=== PATIENT | female | born 1980 | race Caucasian/White ===

== ENCOUNTER 2019-08-22 02:13 | Emergency (ER) | payer OTHER, SELFPAY ==
--- NOTE | ~2019-08-22 | CT_ITS ---
EXAMINATION: CTA chest PE protocol DATE: 08/22/2019 04:38 INDICATION: Dyspnea on exertion. Elevated d-dimer. TECHNIQUE: Computed tomography (CT) pulmonary angiogram of the chest was performed with 100 mL Omnipa que-350 intravenous contrast. Additional 3D reconstructions utilizing coronal maximum intensity proje ction (MIP) were performed. Automated exposure control and iterative reconstruction technique were em ployed. The dose-length product was 213.80 mGy-cm. COMPARISON: None FINDINGS: Good contrast opacification of the pulmonary arteries. There is mild streak artifact from dense contr ast in the superior vena cava and right atrium. Minimal scattered motion artifact which does not sign ificantly limit evaluation. No pulmonary embolism. Lungs are clear with no pneumonia or other pulmona ry infiltrates, pulmonary edema, pleural effusion or pneumothorax. Diffuse mild bronchial wall thicke carina which could be seen with bronchitis. Heart size is normal. No pericardial effusion. Thoracic aor ta is normal in caliber with no dissection. Relatively symmetric shoddy bilateral axillary lymph node s. No pathologically enlarged thoracic lymphadenopathy. Visual is upper abdomen is unremarkable. The lower thoracic kyphosis with anterior height loss of the fused T10 and T11 vertebral bodies which cou ld be developmental or sequela of old trauma. Schmorl's nodes at T12 and at L1, lateral with chronic appearing mild anterior wedging. IMPRESSION: 1. No pulmonary embolism. 2. Mild bronchial wall thickening which could be seen with bronchitis. No pneumonia. Reviewed, dictated and finalized at location A. IMPRESSION: 1. No pulmonary embolism. 2. Mild bronchial wall thickening which could be seen with bronchitis. No pneum onia.
--- NOTE | ~2019-08-22 | XR_ITS ---
EXAMINATION: XR chest 2V 08/22/2019 03:47 INDICATION: Dyspnea with exertion PROCEDURE: 2 view chest COMPARISON: 03/31/2017 FINDINGS: The lungs are clear. The cardiomediastinal silhouette is within normal limits. There are no pleural effusions. There is no pneumothorax suspected. There is chronic wedge compression fractu re of the lower thoracic spine with accentuated kyphosis. The lungs are hyperinflated which is consis tent with, but not diagnostic of chronic obstructive pulmonary disease. IMPRESSION: 1: NO ACUTE CARDIOPULMONARY DISEASE. Reviewed, dictated and finalized at location A.
[2019-08-22 02:15] VITALS: BP 157/91; PULSE 92; RESP 16; TEMP 36.3; O2SAT 100
--- NOTE | 2019-08-22 02:25 | ECG_ITS ---
Measurements Intervals [place] Rate: 75 P: 52 [place]: 149 QRS: 43 QRSD: 84 T: 29 QT: 374 QTc: 420 Interpretive Statements SINUS RHYTHM BASELINE WANDER- V3 NORMAL ECG Electronically Signed On 08-22-2019 8:11:33 CDT by Buddy Reyes D.O.
--- NOTE | 2019-08-22 02:27 | ED.GENADULT ---
HPI - General Adult General Chief complaint: Dizziness Stated complaint: Low Hemoglobin Source: patient Mode of arrival: ambulatory Limitations: no limitations History of Present Illness HPI narrative: 39 y.o. female came to the e.d. at 2:40 AM with c/o of feeling progressively more exhausted starting several months ago. Over the last few days there are times when she feels so weak she might pass out; walking brings on a feeling of not getting enough oxygen. She states she injects methamphetamine when she gets to feeling this way, and has for 25 years. She has chronic anemia. She states she has a PCP in [facility] she has not ever seen. This AM she noticed tenderness and swelling in the left antecubital area, she last injected at that site 2 days ago. Review of records from [facility]: 11/2016 Acute on chronic LBP. Hgb = 7.6, iron of 3. Treated with IV iron; no transfusion. 04/2016 echocardiogram to evaluate heart murmur: normal e.f., grade 3 restrictive diastolic dysfunction. 04/2016 [facility] eval of anemia inconclusive. 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 Hep C carrier. Related Data Allergies Allergy/AdvReac Type Severity Reaction Status Date / Time No Known Allergies Allergy Verified 05/08/19 10:45 Review of Systems Constitutional: Constitutional: Denies anorexia, Denies chills and Denies fever(s) ENT: Reports tinnitus (this AM, comes and goes, chronic. ) Cardiovascular: Cardiovascular: Denies chest pain and Denies edema Respiratory: Respiratory: Denies cough Comments: no shortness of breath at rest. Gastrointestinal: Gastrointestinal: Denies GI cramping, Denies diarrhea and Denies nausea Genitourinary: Genitourinary: Denies hematuria and Denies dysuria Integumentary/Breasts: Skin/Breast: Reports system reviewed and no additional complaints, except as docu Neurologic: Denies vertigo Comments: Feels like when she's walking she falls to one side. Psychiatric: Psychiatric: Denies anxiety, Denies depression and Denies hopelessness [facility] Past Medical History Medical History (Updated 08/22/19 @ 05:58 by Jay Mccord MD) Blood pressure elevated without history of HTN Methamphetamine abuse Osteomyelitis Surgical History Surgical History (Updated 08/22/19 @ 05:29 by Jay Mccord MD) H/O tubal ligation Social History Social History Gender identity (if verbalized by the patient): Female Exam Const: General: cooperative, no acute distress and alert; No anxious, ill appearing or intoxicated appearing Nutritional Appearance: average body habitus and well nourished Orientation/consciousness: patient oriented x3 Limitations: no limitations HENMT: Ears: TM's normal bilaterally Mouth: Yes Normal oral and palatal mucosa present and Yes moist mucous membranes Throat: posterior oropharynx normal Eyes: General: appearance normal, both eyes and all related structures Pupils: Equal, round and reactive pupils present EOM: EOMs intact bilaterally and No Nystagmus present Neck: Neck: no lymphadenopathy noted Chest: Chest palpation & inspection: normal inspection of the chest Resp: Effort & Inspection: normal respiratory effort and able to speak in complete sentences Auscultation: clear to auscultation bilaterally Cardio: Palpation: normal PMI Rate: regular rate Rhythm: regular rhythm Heart sounds: S1 normal heart sound present, S2 normal heart sound present and Murmur heart sound present (2/6 ) GI: Inspection: normal to inspection GI Palp: No abdominal tenderness Back/Spine/Pelvis: Back: no CVA tenderness Thoracic/Lumbar Spine: thoracic and lumbar spine normal to inspection Skin: General skin exam: normal color and no rashes or lesions noted (many ~ 5 - 10 mm hypopigmented macules on upper chest. ) Lesions: other (left antecubital track mcguire, indurated 6 cm tenderness, ) Rashes: no rashes (dark red along the L antec
[2019-08-22 02:53] LABS: Basophils Absolute Auto 0.06 K/mm3 (0.00-0.10); Basophils Percent Auto 0.6 % (0.0-1.0); Eosinophils Absolute Auto 0.29 K/mm3 (0.02-0.50); Eosinophils Percent Auto 2.8 % (1.0-6.0); Hematocrit 25.3 % (35.0-49.0); Immature Granulocyte Absolute 0.05 K/mm3 (0.00-0.00); Immature Granulocyte Percent A 0.5 % (0.0-0.0); Lymphocytes Absolute Auto 1.49 K/mm3 (1.10-4.50); Lymphocytes Percent Auto 14.2 % (18.0-42.0); Mean Corpuscular HGB Conc 26.9 g/dL (32.0-36.0); Mean Corpuscular Hemoglobin 16.1 pg (27.0-31.0); Mean Platelet Volume 9.1 fl (9.2-11.8); Monocytes Absolute Auto 1.19 K/mm3 (0.10-0.90); Monocytes Percent Auto 11.4 % (2.0-11.0); Neutrophils Absolute Auto 7.4 K/mm3 (1.7-7.2); Neutrophils Percent Auto 70.5 % (50.0-70.0); Platelet Count Result 495 K/mm3 (150-420); Red Blood Count 4.22 M/mm3 (4.20-5.40); Red Cell Distribution Width 21.2 % (11.6-14.4); White Blood Count 10.5 K/mm3 (4.8-10.8)
[2019-08-22 02:54] LABS: Add Urine Microscopic? YES; Appearance Urine Clear (Clear); Bilirubin Urine Negative (Negative); Blood Urine 2+ (Negative); Color Urine Yellow (Yellow); Glucose Urine UA Negative (Negative); Ketones Urine Negative (Negative); Leukocyte Esterase Ur 1+ (Negative); Nitrate Urine Negative (Negative); Protein Urine Negative (Negative); Specific Grav Ur 1.025 (1.010-1.020); Urobilinogen Urine 0.2 mg/dL (0.2-1.0)
[2019-08-22 03:03] LABS: Hemoglobin 6.8 g/dL (12.0-15.0)
[2019-08-22 03:04] LABS: Pregnancy On Board Control Positive; Urine Pregnancy Test Negative
[2019-08-22 03:12] LABS: Specific Gravity Ur 1.025 (1.010-1.035)
[2019-08-22 03:12] LABS: Alanine Aminotransferase 21 U/L (14-59); Albumin Level 3.3 g/dL (3.4-5.0); Alkaline Phosphatase 72 U/L (46-116); Anion Gap 12.1 mmol/L (7-16); Aspartate Amino Transferase 24 U/L (15-37); Bilirubin,Total 0.2 mg/dL (0.00-1.00); Blood Urea Nitrogen 14 mg/dL (7-18); Calcium 8.8 mg/dL (8.5-10.1); Carbon Dioxide 28 mmol/L (21-32); Chloride 106 mmol/L (98-108); Estimated CRCL calculation 93 ml/min; Estimated Glomerular Filt Rate > 60; Glucose 96 mg/dL (70-99); Osmolality Calculated 294 mOsm/kg (285-295); Potassium 4.1 mmol/L (3.5-5.1); Sodium 142 mmol/L (136-145); Total Protein 6.9 g/dL (6.4-8.2)
[2019-08-22 03:13] LABS: Bacteria Urine 1+ /hpf; Squamous Epithelial Cell Urine Occasional /hpf (Few)
[2019-08-22 03:13] LABS: Troponin I < 0.02 ng/mL (0.00-0.056)
[2019-08-22 03:14] VITALS: BP 168/93; PULSE 82; RESP 16; O2SAT 100
[2019-08-22 03:18] LABS: Magnesium 1.8 mg/dL (1.8-2.4)
[2019-08-22 03:37] LABS: D Dimer 0.59 mg/L (0.19-0.50)
[2019-08-22 03:43] LABS: BNP 16.7 pg/mL (0-100)
[2019-08-22 03:48] LABS: Amphetamine Screen Urine Positive (Negative); Barbiturate Screen Urine Negative (Negative); Benzodiazepines Screen Urine Negative (Negative); Cannabinoid Screen Urine Positive (Negative); Cocaine Screen Urine Negative (Negative); Methadone Screen Urine Negative (Negative); Opiate Screen Urine Negative (Negative); Phencyclidine Screen Urine Negative (Negative)
--- NOTE | 2019-08-22 03:53 | PC.NURSE ---
Patient returned from xray, she is sleepy. VSS. Awaiting further orders
--- NOTE | 2019-08-22 04:22 | PC.NURSE ---
Patient noted to have IV track mcguire to thanh inner arms, she admits to IV meth use and last used yesterday. Patient left AC site noted to be tender with a questionable developing infection, ERP informed and examined patient.
[2019-08-22 04:46] VITALS: BP 148/91; PULSE 76; RESP 16; O2SAT 99
[2019-08-22 05:00] LABS: Ferritin 3 ng/mL (8-252); Iron 9 ug/dL (50-170); Percent Iron Saturation 2 % (12-57)
[2019-08-22 05:03] VITALS: BP 146/76; PULSE 76; RESP 16; O2SAT 100
[2019-08-22 05:03] LABS: CRP < 0.2 mg/dL (0.0-0.9)
--- NOTE | 2019-08-22 05:04 | PC.NURSE ---
Patient with noted anemia and probable UTI offered admission for blood transfusion and treatment by ERP, patient refused admission or further treatment. Risk of leaving without being treated discussed, benefits of staying discussed. Patient signed AMA form and indicated her understanding of the risks of leaving without being treated for her condition. IV removed. Patient ambulatory to the bathroom without assistance. She will be calling her ride and then will depart the ER
== END 2019-08-22 05:19 | disposition home or self-care (01) ==
PROVIDERS: Emergency Provider Family Medicine
DX: R03.0 Elevated blood-pressure reading, without diagnosis of hypertension (principal); F15.10 Other stimulant abuse, uncomplicated; D50.9 Iron deficiency anemia, unspecified; N30.01 Acute cystitis with hematuria; T80.89XA Other complications following infusion, transfusion and therapeutic injection, initial encounter
CPT/HCPCS: 36415; 71046; 71275; 80053; 80307; 81001; 81025; 82728; 83540; 83550; 83735; 83880; 84484; 85025; 85380; 86140; 93005; 99284; Q9965

== ENCOUNTER 2022-10-21 11:01 | Emergency (ER) | payer BC, OTHER, SELFPAY ==
[2022-10-21 11:19] VITALS: BP 148/89; PULSE 84; RESP 16; O2SAT 100
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
[2022-10-21 12:01] VITALS: BP 140/86; PULSE 75; RESP 16; O2SAT 100
== END 2022-10-21 12:04 | disposition home or self-care (01) ==
LOC: ANHED 11:39
PROVIDERS: Emergency Provider Nurse Practitioner Family
DX: L23.7 Allergic contact dermatitis due to plants, except food (principal)
CPT/HCPCS: 96372; 99283; J1100

== ENCOUNTER 2023-09-29 03:28 | Emergency (ER) | payer MEDICAID, SELFPAY ==
--- NOTE | ~2023-09-29 | XR_ITS ---
Right Hand Technique: PA, oblique, and lateral views were obtained. Clinical History: Trauma Findings: No acute fracture or dislocation is seen. Prior ORIF of the distal radius noted. Joint spac es are preserved. Soft tissues are unremarkable. Impression: No acute abnormality. Prior ORIF of the distal radius. Reviewed, dictated and finalized at location . Impression: No acute abnormality. Prior ORIF of the distal radius.
[2023-09-29 03:33] VITALS: BP 150/85; PULSE 87; RESP 18; TEMP 36.4; O2SAT 100
[2023-09-29 03:37] VITALS: BP 150/85; PULSE 82; RESP 18; TEMP 36.4; O2SAT 100
[2023-09-29] MEDS: TETANUS,DIPHTHERIA,AC PERTUSSIS ADULT (0.5 ML) BOOSTRIX IM (03:49)
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
[2023-09-29] MEDS: KETOROLAC 15 MG/ML VIAL (*BKC) IM (04:19)
== END 2023-09-29 05:25 | disposition home or self-care (01) ==
PROVIDERS: Emergency Provider Emergency Medicine
DX: S69.91XA Unspecified injury of right wrist, hand and finger(s), initial encounter (principal); Z23 Encounter for immunization; Y00.XXXA Assault by blunt object, initial encounter
CPT/HCPCS: 29125; 73130; 90471; 90715; 96372; 99283; J1885